=== PATIENT | female | born 1975 | race Caucasian/White ===

== ENCOUNTER 2017-05-26 16:14 | Emergency (ER) | payer BC, OTHER ==
[~2017-05-26] VITALS: Ht 157.5 cm; Wt 49.0 kg
[~2017-05-26 16:14] MED LIST: CLC100 PO; LEVO50TA PO; MTR600X PO; OMEGCAP2 PO; OMEP20TA PEG; OXYC-57 PO; [UNRECOGNIZED DRUG - CODE]; [UNRECOGNIZED DRUG - OTHER] PO
[2017-05-26 16:24] VITALS: TEMP 36.7; Ht 157.5 cm; Wt 49.0 kg
[2017-05-26] MEDS ORDERED: ASPIRIN 81 MG CHEW PO STA (16:32)
--- NOTE | 2017-05-26 16:42 | EMERGENCY ROOM VISIT NOTE ---
History Report prepared by Ian: Dorothy Barnett Under the Supervision of: Dr. Max Greenberg D.O. First contact with patient: 16:29 Chief Complaint: CARDIAC ASSESSMENT Stated Complaint: CHEST TIGHTNESS, BREATHING DIFFIUCULTY History of Present Illness The patient is a 41 year old female who presents to the Emergency Room with complaints of intermittent chest tightness beginning over the last few weeks. The patient states that she usually gets this pain after running and that she has been increasing her mileage. The patient states that it used to happen from mile 5 on, but states that she only ran 2 miles today when she experienced the pain. She states that she does not notice it while she is running but states that she notices it once she stops. She reports that she still has the pain currently. The patient states that she went to her PCP and had an ECG done which was fine and had a device placed that measures her heart rate over the course of 14 days. The patient reports that her pain does not radiate to her back or her abdomen. She states that it feels like she cannot catch her breath , but denies nausea, vomiting, and pain in her legs. She reports that the bottom of her left foot got bruised randomly last week and that she has had other bruising on her body that she does not know where it is coming from. The patient reports a history of a hysterectomy due to fibroids and endometriosis. The patient reports a family history of asthma, but no family history of blood clots. Source of History: patient Onset: last few weeks Position: chest Quality: other (tightness ) Timing: intermittent Associated Symptoms: + SOB, No nausea, No vomiting, No abdominal pain Note: also denies: pain in her legs Review of Systems See HPI for pertinent positives & negatives. A total of 10 systems reviewed and were otherwise negative. Past Medical & Surgical Surgical Problems: (1) H/O: hysterectomy Family History Asthma Social History Smoking Status: Never Smoker Marital Status: Current/Historical Medications Scheduled Levothyroxine Sodium (Synthroid), 1 TAB PO DAILY Allergies Coded Allergies: Gluten (Verified Allergy, Unknown, THROAT CONSTRICTS, TIGHTENS, 05/26/17) NO KNOWN DRUG ALLERGIES (Verified Allergy, Unknown, , 05/26/17) Physical Exam Vital Signs Date Time Temp Pulse Resp B/P (MAP) Pulse Ox O2 Delivery O2 Flow Rate FiO2 05/26/17 18:17 56 16 96/55 100 Room Air 05/26/17 17:07 75 05/26/17 16:24 36.7 75 20 112/73 100 Room Air Physical Exam GENERAL: Patient is awake, alert, and in no acute distress. Patient is resting comfortably and showing no signs of anxiety EYES: The conjunctivae are clear. The pupils are round and reactive. EARS, NOSE, MOUTH AND THROAT: The nose is without any evidence of any deformity. Mucous membranes are moist tongue is midline NECK: The neck is nontender and supple. RESPIRATORY: Normal respiratory effort is noted there is no evidence of wheezing rhonchi or rales CARDIOVASCULAR: Regular rate and rhythm noted there no murmurs rubs or gallops normal S1 normal S2 GASTROINTESTINAL: The abdomen is soft. Bowel sounds are present in all quadrants. Abdomen is nontender MUSCULOSKELETAL/EXTREMITIES: There is no evidence of gross deformity full range of motion is noted in the hips and shoulders SKIN: There is no obvious evidence of any rash. There are no petechiae, pallor or cyanosis noted. There is no pedal edema noted. Bruising over lateral aspect of the left foot which appeared old. Bruise on the left upper extremity which did not appear acute. NEUROLOGIC: Patient is awake alert and oriented x3 strength is symmetric patellar reflexes are 2+ bilaterally Medical Decision & Procedures ER Provider Diagnostic Interpretation: Radiology results as stated below per my review and radiologist interpretation: CHEST ONE VIEW PORTABLE CLINICAL HISTORY: 41 years-old Female presenting with CHEST PAIN. TECHNIQUE: Portable upright AP view of the chest was obtained. COMPARISON: None. FINDINGS: A device projects over the left midlung linear evaluation in this region. Calcifications suggested in the left axilla, nonspecific. Cardiac mediastinal silhouette normal. Lungs and pleural spaces clear. Osseous structures normal. Upper abdomen normal. IMPRESSION: 1. No acute cardiopulmonary disease. Electronically signed by: Arthur Mcgrath M.D. 05/26/2017 4:43 PM Dictated Date/Time: 05/26/2017 4:43 PM Laboratory Results 05/26/17 16:50 Red Blood Count 3.99, Mean Corpuscular Volume 96.7, Mean Corpuscular Hemoglobin 33.3, Mean Corpuscular Hemoglobin Concent 34.5, Mean Platelet Volume 10.1, Neutrophils (%) (Auto) 65.6, Lymphocytes (%) (Auto) 26.9, Monocytes (%) (Auto) 6.2, Eosinophils (%) (Auto) 0.9, Basophils (%) (Auto) 0.3, Neutrophils # (Auto) 5.62, Lymphocytes # (Auto) 2.31, Monocytes # (Auto) 0.53, Eosinophils # (Auto) 0.08, Basophils # (Auto) 0.03 05/26/17 16:50 Test 05/26/17 16:50 White Blood Count 8.58 K/uL (4.8-10.8) Red Blood Count 3.99 M/uL (4.2-5.4) Hemoglobin 13.3 g/dL (12.0-16.0) Hematocrit 38.6 % (37-47) Mean Corpuscular Volume 96.7 fL (80-100) Mean Corpuscular Hemoglobin 33.3 pg (25-34) Mean Corpuscular Hemoglobin Concent 34.5 g/dl (32-36) Platelet Count 205 K/uL (130-400) Mean Platelet Volume 10.1 fL (7.4-10.4) Neutrophils (%) (Auto) 65.6 % Lymphocytes (%) (Auto) 26.9 % Monocytes (%) (Auto) 6.2 % Eosinophils (%) (Auto) 0.9 % Basophils (%) (Auto) 0.3 % Neutrophils # (Auto) 5.62 K/uL (1.4-6.5) Lymphocytes # (Auto) 2.31 K/uL (1.2-3.4) Monocytes # (Auto) 0.53 K/uL (0.11-0.59) Eosinophils # (Auto) 0.08 K/uL (0-0.5) Basophils # (Auto) 0.03 K/uL (0-0.2) RDW Standard Deviation 43.4 fL (36.4-46.3) RDW Coefficient of Variation 12.2 % (11.5-14.5) Immature Granulocyte % (Auto) 0.1 % Immature Granulocyte # (Auto) 0.01 K/uL (0.00-0.02) Prothrombin Time 10.2 SECONDS (9.0-12.0) Prothromb Time International Ratio 1.0 (0.9-1.1) Activated Partial Thromboplast Time 23.6 SECONDS (21.0-31.0) Partial Thromboplastin Ratio 0.9 Anion Gap 7.0 mmol/L (3-11) Est Creatinine Clear Calc Drug Dose 70.9 ml/min Estimated GFR () 105.4 Estimated GFR (Non- 90.9 BUN/Creatinine Ratio 18.6 (10-20) Calcium Level 8.7 mg/dl (8.5-10.1) Total Bilirubin 0.5 mg/dl (0.2-1) Direct Bilirubin < 0.1 mg/dl (0-0.2) Aspartate Amino Transf (AST/SGOT) 17 U/L (15-37) Alanine Aminotransferase (ALT/SGPT) 24 U/L (12-78) Alkaline Phosphatase 49 U/L (45-117) Troponin I < 0.015 ng/ml (0-0.045) Total Protein 7.3 gm/dl (6.4-8.2) Albumin 4.3 gm/dl (3.4-5.0) Lipase 201 U/L (73-393) Human Chorionic Gonadotropin, Qual NEG (NEG) Laboratory results per my review. Medications Administered Medications (Trade) Dose Ordered Sig/Carloz Route Start Time Stop Time Status Last Admin Dose Admin Aspirin (Aspirin Chew) 324 mg NOW STAT PO 05/26/17 16:32 05/26/17 16:34 DC 05/26/17 16:46 324 MG Al Hydroxide/Mg Hydroxide (Maalox Susp) 30 ml NOW STAT PO 05/26/17 17:51 05/26/17 17:53 DC 05/26/17 18:17 30 ML ECG Per My Interpretation Indication: SOB/dyspnea Rate (beats per minute): 58 Rhythm: sinus bradycardia Findings: no ectopy, other (no acute ST segment abnormalities ) Comparison ECG Date: no prior available ED Course 0: The patient was evaluated in room B5. A complete history and physical examination were performed. 1631: Ordered Aspirin 324 mg PO. 1749: I checked on the patient and updated her on her results. 1750: Ordered Maalox Susp 30 ml PO. 1831: I discussed the patient's case with Dr. Osullivan who recommends outpatient follow up. 0: Upon reevaluation, the patient is resting. I discussed the results and treatment plan with her. She verbalized agreement of the treatment plan. She was discharged home. Medical Decision Differential diagnosis: Etiologies such as cardiac ischemia, aortic dissection, pulmonary embolism, pneumonia, pneumothorax, musculoskeletal, infections, pericarditis, myocarditis , esophageal rupture, gastrointestinal, as well as others were entertained. Nursing notes reviewed. The patient is a 41-year-old female who presented to the emergency department for an evaluation of chest discomfort. The patient is in excellent cardiovascular health. She is a runner and has noted that when she stops running she develops discomfort across her chest which she describes a pressure. The patient has had intermittent symptoms over the last few weeks. She noticed changing the symptoms recently. I discussed the patient's laboratory and radiographic studies with her. I also discussed her condition with the on-call [employer] engineering assistant. At this time I do not feel the patient 's discomfort is cardiac in nature however given the association with her running I felt discussion with the engineering assistant is warranted. I discussed the limitations of the chest pain workup with the patient. Ultimately I feel the patient can be followed up as an outpatient for further stress test or provocative testing. I also encouraged her to rest and avoid any strenuous activity. She is also encouraged to continue all medications as prescribed and return to the emergency department immediately if symptoms change worsen or the need arises. Medication Reconcilliation Current Medication List: was personally reviewed by me Blood Pressure Screening Patient's blood pressure: Normal blood pressure Consults Time Called: 1752 Consulting Physician: Dr. Osullivan- [facility] Returned Call: [phone] I discussed the patient's case with Dr. Osullivan who recommends outpatient follow up. Impression Primary Impression: Chest pain Scribe Attestation The scribe's documentation has been prepared under my direction and personally reviewed by me in its entirety. I confirm that the note above accurately reflects all work, treatment, procedures, and medical decision making performed by me. Departure Information Dispostion Home / Self-Care Referrals Teresa Munguia DO (PCP) Cirilo Osullivan D.O. Forms IMPORTANT VISIT INFORMATION Patient Instructions ED Chest Pain Atypical Unkn Cause, My [facility] Additional Instructions Continue all medications as prescribed. Consider using Maalox or Mylanta as directed for symptomatic relief. Consider starting an [id number] medication for reflux such as Prilosec or Zantac. Return to the emergency department immediately symptoms change worsen or the need arises. Consider avoiding any strenuous activity until you are cleared by your family doctor. Problem Qualifiers Primary Impression: Chest pain Chest pain type: unspecified Qualified Codes: R07.9 - Chest pain, unspecified
--- NOTE | 2017-05-26 16:45 | DIAGNOSTIC IMAGING REPORT ---
CHEST ONE VIEW PORTABLE CLINICAL HISTORY: 41 years-old Female presenting with CHEST PAIN. TECHNIQUE: Portable upright AP view of the chest was obtained. COMPARISON: None. FINDINGS: A device projects over the left midlung linear evaluation in this region. Calcifications suggested in the left axilla, nonspecific. Cardiac mediastinal silhouette normal. Lungs and pleural spaces clear. Osseous structures normal. Upper abdomen normal. IMPRESSION: 1. No acute cardiopulmonary disease. Electronically signed by: Arthur Mcgrath M.D. 05/26/2017 4:43 PM Dictated Date/Time: 05/26/2017 4:43 PM
[2017-05-26 16:59] LABS: BASO % 0.3 %; BASO ABS # 0.03 K/uL (0-0.2); EOS % 0.9 %; EOS ABS # 0.08 K/uL (0-0.5); HEMATOCRIT 38.6 % (37-47); HEMOGLOBIN 13.3 g/dL (12.0-16.0); IG# 0.01 K/uL (0.00-0.02); LYMPH % 26.9 %; LYMPH ABS # 2.31 K/uL (1.2-3.4); MEAN CELL VOLUME 96.7 fL (80-100); MEAN CORPUSCULAR HEMOGLOBIN 33.3 pg (25-34); MEAN CORPUSCULAR HGB CONC 34.5 g/dl (32-36); MEAN PLATELET VOLUME 10.1 fL (7.4-10.4); MONO % 6.2 %; MONO ABS # 0.53 K/uL (0.11-0.59); NEUT % 65.6 %; NEUT ABS # 5.62 K/uL (1.4-6.5); PLATELET COUNT 205 K/uL (130-400); RED CELL DISTRIBUTION WIDTH CV 12.2 % (11.5-14.5); RED CELL DISTRIBUTION WIDTH SD 43.4 fL (36.4-46.3); WHITE BLOOD COUNT 8.58 K/uL (4.8-10.8)
[2017-05-26 17:12] LABS: PTT PATIENT 23.6 SECONDS (21.0-31.0)
[2017-05-26 17:27] LABS: ALBUMIN 4.3 gm/dl (3.4-5.0); ALT/SGPT 24 U/L (12-78); AST/SGOT 17 U/L (15-37); BLOOD UREA NITROGEN 15 mg/dl (7-18); CALCIUM 8.7 mg/dl (8.5-10.1); CARBON DIOXIDE 28 mmol/L (21-32); GLUCOSE 91 mg/dl (70-99); LIPASE 201 U/L (73-393); POTASSIUM 3.4 mmol/L (3.5-5.1); SODIUM 138 mmol/L (136-145)
[2017-05-26 17:32] LABS: ALKALINE PHOSPHATASE 49 U/L (45-117); TOTAL PROTEIN 7.3 gm/dl (6.4-8.2)
[2017-05-26] MEDS ORDERED: ALUMINUM/MAGNESIUM SUSP 30 ML UDC PO STA (17:51)
[2017-05-26] MEDS ORDERED: LEVO88TA PO (17:53)
[2017-05-26 18:17] VITALS: BP 96/55; PULSE 56; O2SAT 100
== END 2017-05-26 18:59 | disposition home or self-care (01) ==
LOC: C.EDB 16:15
DX: R07.9 Chest pain, unspecified (principal); Z90.710 Acquired absence of both cervix and uterus; Z82.5 Family history of asthma and other chronic lower respiratory diseases; Z79.899 Other long term (current) drug therapy